=== PATIENT | male | born 1970 | race Caucasian/White ===

== ENCOUNTER 2019-10-24 11:04 | Inpatient (IN) | payer OTHER ==
[2019-10-23 10:12] LABS: BASOPHILS # (AUTO) 0.1 (0.0-0.1); BASOPHILS % 0.8 % (0.0-1.0); EOSINOPHILS # (AUTO) 0.3 (0.0-0.4); EOSINOPHILS % 4.2 % (0.0-6.0); HEMOGLOBIN 15.1 g/dL (14.0-18.0); LYMPHOCYTES # (AUTO) 1.6 (1.0-3.2); MEAN CORPUSCULAR HEMOGLOBIN 28.9 pg (28-32); MEAN CORPUSCULAR HGB CONC 33.6 g/dL (31-35); MONOCYTES # (AUTO) 0.4 (0.2-0.8); MONOCYTES % 5.4 % (4.4-11.3); NEUTROPHILS % 67.7 % (38.7-80.0); PLATELET COUNT 285 x10e3/uL (140-360); RED BLOOD COUNT 5.23 x10e6/uL (4.3-5.7)
[2019-10-23 10:31] LABS: ANION GAP 15.5 mmol/L (8-16); BLOOD UREA NITROGEN 14 mg/dL (7-26); BUN/CREATININE RATIO 18 (6-25); CALCIUM 9.3 mg/dL (8.4-10.2); CARBON DIOXIDE 23 mmol/L (22-29); CHLORIDE 101 mmol/L (98-107); CREATININE, SERUM 0.79 mg/dL (0.72-1.25); EST GLOMERULAR FILTRATION RATE > 60 ML/MIN (60-); GLUCOSE 283 mg/dL (74-118); POTASSIUM 4.5 mmol/L (3.5-5.1); SODIUM 135 mmol/L (136-145)
--- NOTE | 2019-10-23 11:00 | Diagnostic Imaging Report ---
EXAM: CHEST 2 VIEWS DATE: 10/23/2019 9:51 AM INDICATION: Preoperative evaluation COMPARISON: None FINDINGS: The trachea is midline. The lungs are symmetrically expanded without evidence for large focal consolidation, pneumothorax, or significant pleural effusion. The cardiomediastinal silhouette and pulmonary vasculature are within normal limits. No acute osseous abnormality is identified. The surrounding soft tissues are unremarkable. IMPRESSION: No acute cardiopulmonary process identified. Signed by: Dr. Javon Lawler MD on 10/23/2019 10:56 AM
[~2019-10-24] VITALS: Ht 190.5 cm; Wt 155.2 kg
[~2019-10-24 11:04] MED LIST: AUGMENTIN 875-1 EACH PO; JANUVIA100 MG PO; LOTREL 10-20 M1 EACH PO; METFORMIN HCL500 MG PO
[2019-10-24] MEDS ORDERED: BACITRACIN 50,000 UNIT VIAL ONE (12:35)
[2019-10-24] MEDS ORDERED: BUPIVACAINE HCL 0.5% INJ 30 ML VIAL INJ ONE (12:35)
[2019-10-24] MEDS ORDERED: INSULIN REGULAR, HUMAN 100 UNIT/1 ML 3ML VIAL ONE (13:16)
[2019-10-24] MEDS ORDERED: SEVOFLURANE INHAL SOLN 250 ML PEN BTL ONE (14:46)
[2019-10-24] MEDS ORDERED: ONDANSETRON HCL INJ 2MG/ML 2ML 2 MG/ML VIAL ONE (14:46)
[2019-10-24] MEDS ORDERED: LIDOCAINE HCL 2% LOCAL INJ 5 ML SDV VIAL INJ ONE (14:46)
[2019-10-24] MEDS ORDERED: FENTANYL CITRATE/PF 100MCG/2 ML INJ ONE (15:04)
[2019-10-24] MEDS ORDERED: MIDAZOLAM HCL 2 MG/2 ML VIAL ONE (15:04)
--- NOTE | 2019-10-24 15:50 | NUR ---
RCD PT FROM RECOVERY BY BED PT IS ALERT AND ORIENTED PT RESTING ON BED VITALS CHECKED ,ADMISSION HISTORY AND ASSESSMENT DONE PT HAVE WOUND ON THE LEFT FOOT DID THE SURGERY ON TODAY NO SIGNS OF ANY BLEEDING NOTED IV PATENT BY SALINE FLUSH INSTRUCT THE PT REGARDING HOSPITAL POLICY AND ROUTINE BED LOW AND LOCKED CALL LIGHT IN REACH
[2019-10-24 16:15] VITALS: BP 151/73
[2019-10-24] MEDS ORDERED: HYDROCODONE/APAP 5MG-325MG TAB PO PRN (16:15)
[2019-10-24 17:27] VITALS: BP 151/73
[2019-10-24 17:33] VITALS: BP 151/73
[2019-10-24] MEDS ORDERED: PIPER-TAZ 3.375 GM 50 ML IV SCH (18:00)
[2019-10-24] MEDS ORDERED: VANCOMYCIN HCL 1.25 GM in SODIUM CHLORIDE 0.9% 250ML 250 ML IV SCH (18:00)
--- NOTE | 2019-10-24 19:03 | NUR ---
PT RESTING ON BED BED SIDE REPORT GIVEN TO ONCOMING NURSE
--- NOTE | 2019-10-24 19:13 | Diagnostic Imaging Report ---
EXAM: CHEST XRAY LINE PLACEMENT DATE: 10/24/2019 6:53 PM INDICATION: ^LINE PLACEMENT ^[id number] ^190 ^Y COMPARISON: Chest x-ray, 10/23/2019 FINDINGS: Lines and tubes: Interval placement of right PICC extending to mid SVC. Heart size normal. No focal pulmonary opacity, pleural effusion or pneumothorax. Upper abdomen unremarkable. No acute bony abnormality. IMPRESSION: 1. Interval placement of right PICC extending to the mid SVC. 2. No evidence for acute disease in the chest Signed by: Dr. Jamie Shore M.D. on 10/24/2019 7:10 PM
[2019-10-24 20:00] VITALS: BP 124/66
[2019-10-24 20:45] VITALS: BP 124/66
[2019-10-24] MEDS: PIPER-TAZ 3.375 GM 50 ML IV SCH (20:45)
--- NOTE | 2019-10-24 20:45 | NUR ---
PATIENT AOX4, NO SIGNS OF RESPIRATORY DISTRESS NOTED. PATIENT IS RUNNING ON ANTIBIOTICS ORDERED AND VOICES NO PAIN AT THIS TIME. PATIENT HAS ALSO SIGNED FOR POST OP SHOE. BED IS LOW, SIDE RAILS ARE UP, CALL LIGHT WITHIN EASY REACH, WILL CONTINUE TO MONITOR.
[2019-10-24] MEDS: VANCOMYCIN HCL 1.25 GM in SODIUM CHLORIDE 0.9% 250ML 250 ML IV SCH (21:30)
--- NOTE | 2019-10-24 23:29 | Consultation ---
DATE OF CONSULTATION: ROOM NUMBER: Outpatient Patients [facility] for direct admit after surgery. HISTORY OF PRESENT ILLNESS: Mr. Tang is a most pleasant 49-year-old gentleman who was referred to my office for treatment of what was determined to be osteomyelitis of the 4th metatarsal and 4th digit of the left foot. His previous medical history did include a diabetes with distal peripheral neuropathy. He has been treated over year ago with wound debridements and thought the area had improved but stated that the ulcerated area may have sealed over without completely healing and he ultimately did not follow up anymore. The patient has been having difficulty with his blood sugar level since the infection progressed. The patient was sent to MRI outpatient was determined to have osteomyelitis of 4th met and digit. PREVIOUS MEDICAL HISTORY: Otherwise noncontributory has history of hypertension as well as diabetes. 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 REVIEW OF SYSTEMS: Otherwise negative. PHYSICAL EXAMINATION: Lower extremity vascular status, the patient has palpable pedal pulses, both dorsalis pedis, posterior tibial skin temperature is warm cap refill also normal limits. Neurologically, grossly insensate with a loss of protective sensation as evidenced by [place] monofilament testing. Dermatologically, there is a very large lesion on the plantar aspect of the foot. He has recently undergone surgical debridement this morning for that and is admitted in followup. The wound itself is full thickness all the way through skin, subcutaneous tissue, and bone down to the level of the 4th metatarsophalangeal joint. The wound base has been debrided including bone surgically. The area is packed open with iodoform gauze and he will undergo further medical evaluations, IV antibiotics, and stabilization of his blood sugars while in house prior to discharging to local wound care on an outpatient basis as well as IV antibiotics for 6 to 8 weeks. The patient definitely wants to try and save his toe if at all possible, but understands that there is always a risk of loss of digit, foot or extremity with infection of this severity. The patient will be followed closely otherwise. OVIDIO Root/URMILA /[id number]
--- NOTE | 2019-10-24 23:50 | Consultation ---
DATE OF CONSULTATION: REASON FOR CONSULTATION: Osteomyelitis of the left foot. HISTORY OF PRESENT ILLNESS: This patient who is a very pleasant 49-year-old white male, who has history of obesity, hypertension, diabetes mellitus and neuropathy, who has been having problem with his left ankle for more than a year, but recently has been getting progressively worse. The patient was recently diagnosed with osteomyelitis. The patient was admitted for surgical debridement. I am asked to see him for antibiotic recommendation. The patient who is currently lying in bed, comfortable. The patient underwent a left foot bone biopsy with debridement of the 4th metatarsal by Dr. Nic Lucas today. He was on antibiotic. The Gram stain is ordered showing gram-positive cocci. The patient who denies any pain at the present time, except he does have open wound on his left foot, was getting progressively worse. There was no fever, no chills. PAST MEDICAL HISTORY: Hypertension, diabetes mellitus, neuropathy, obesity, hypercholesteremia. PAST SURGICAL HISTORY: Denies. ALLERGIES: NKA. SOCIAL HISTORY: There is no smoking, drug abuse, or alcohol abuse. FAMILY HISTORY: Otherwise unremarkable. REVIEW OF SYSTEMS: HEENT: There is no headache, visual changes, hearing changes. GI: There is no nausea, no vomiting, no diarrhea. CARDIAC: There is no arrhythmia. NEURO: No seizure activity. SKIN: There is no other rash. The patient who was on vancomycin and Zosyn. His home medications reviewed. He is on amlodipine and insulin. He was on Augmentin, metformin and Januvia. LABORATORY DATA: Reviewed. His chart reviewed. White count 7.44, hemoglobin 15. Sodium 135, potassium 4.5, glucose of 283, creatinine 0.79. He had workup for osteomyelitis as an outpatient with Dr. Nic Lucas. Discussed with Dr. Nic Lucas. PHYSICAL EXAMINATION: GENERAL: He is currently alert, oriented, does not seem to be in acute distress. VITAL SIGNS: Stable, currently afebrile. HEENT: Not icteric. NECK: Supple. No JVD. No lymphadenopathy or thyromegaly. CHEST: Clear bilateral. HEART: S1, S2. No S3, S4 or murmur. ABDOMEN: Soft. Bowel sounds present. No tenderness. EXTREMITIES: No edema. The left foot dressing is on. There is some blood noted on the dressing. IMPRESSION: Osteomyelitis of the left foot. We will get a PICC line. He has a gram-positive cocci. We will put on vancomycin 1.25 q.12. We will obtain vancomycin trough 15 +/-2 if possible. Weekly CBC. We will get chemistry panel. We will get a PICC line. We will arrange home IV antibiotic. Please contact [phone]. Diabetes mellitus, neuropathy, hypertension, obesity, hypercholesteremia, atherosclerosis disease. Discussed with the patient, answered all his question. MD BETHANY Mcqueen/URMILA /[id number]
--- NOTE | 2019-10-24 23:55 | Operative Report ---
DATE OF PROCEDURE: SURGEON: Nic Lucas DPM PREOPERATIVE DIAGNOSES: Chronic ulceration with osteomyelitis of the 4th metatarsal and digit of the left foot. POSTOPERATIVE DIAGNOSES: Chronic ulceration with osteomyelitis of the 4th metatarsal and digit of the left foot. NAME OF THE OPERATION: Incision and drainage with debridement of the ulcerated area 4th metatarsal plantarly on the left foot with debridement of skin, subcutaneous tissue, fat, capsule tendon, and bone all the way through the joint of the 1st metatarsal phalangeal head. The ulcerated area as well as the bone debridement and sequestrum were all sent to pathology for further evaluation of osteomyelitis as well as culture and sensitivity to micro of the bone. Small segments of bone were actually included within the culturette. PROCEDURE IN DETAIL: The patient was taken to the operating room in a mildly sedated state and placed on the operating table in supine position. Following induction of general anesthetic, the left lower extremity was elevated to 60 degrees to exsanguinate before inflating the pneumatic ankle tourniquet at 250 mmHg for hemostasis. Attention was directed to the foot where a large wound approximately 3.5 x 1.5, was noted on the plantar aspect of the 5th met head. This tracked all the way to bone and there was an exposed bone within the wound base. The wound was circumscribed, and the entirety of the circumscribed wound was sent to Pathology for ID only. Deep tissue including capsule tendon and subcutaneous tissue and fat, all of which were necrotic, were debrided from the wound. The capsule on the plantar aspect was eroded and plantar cartilage was noted exposed through the wound base. This was debrided away as it was all devitalized and cultured. The bone itself was sent to Pathology for bone biopsy and further identification of the osteomyelitis, which is obviously present. The base of the proximal phalanx of the 4th digit as well as the 4th metatarsal head were all involved. The area was then irrigated with copious amounts of bacitracin solution after all cultures had been obtained. The wound base was packed with quarter-inch iodoform gauze. The appropriate mildly compressive dressings were applied as well. Release of the pneumatic ankle tourniquet showed a normal hyperemic flush to all digits of the left foot. The patient left the operating room with vital signs stable in apparent satisfactory condition, having tolerated both anesthetic and procedure very well. The patient has been informed that due to the extent of the osteomyelitis, he may eventually lose the 4th digit and metatarsal head, but at this point, an attempt will be made to heal the wound over the debrided bone. The patient will be admitted for further medical workup as his blood sugar levels have been out of control in the 200s preoperatively. The patient will be seen by Dr. Pak of Infectious Disease as well as Dr. Box of Internal Medicine and Dr. Matt Bonner of Endocrinology. OVIDIO Root/MODL /[id number]
[2019-10-25] VITALS (8 sets, daily range): BP systolic 112–151; BP diastolic 59–94
[2019-10-25] MEDS: PIPER-TAZ 3.375 GM 50 ML IV SCH ×4 (01:20→18:00)
[2019-10-25] MEDS ORDERED: CLONIDINE HCL 0.1 MG TAB PO PRN (05:30)
--- NOTE | 2019-10-25 07:00 | NUR ---
RCD PT AT BED PT IS ALERT AND ORIENTED PT RESTING ON BED IV PATENT BY SALINE FLUSH BED LOW AND LOCKED CALL LIGHT IN REACH
[2019-10-25] MEDS: VANCOMYCIN HCL 1.25 GM in SODIUM CHLORIDE 0.9% 250ML 250 ML IV SCH ×2 (08:00→19:17)
[2019-10-25] MEDS: SITAGLIPTIN 100 MG TAB PO SCH (09:00)
[2019-10-25] MEDS ORDERED: METFORMIN HCL 500 MG TAB PO SCH (09:00)
--- NOTE | 2019-10-25 11:45 | History and Physical ---
REASON FOR ADMISSION: Postop of left foot osteomyelitis. HISTORY OF PRESENT ILLNESS: The patient is a 49-year-old gentleman with diabetes and hypertension who presented with presumed osteomyelitis of the left 4th and 5th digits where he is now status post surgical debridement by Dr. Lucas. He currently has some minimal pain of the left foot, but otherwise denies any fever, chills, nausea, vomiting, headache, or shortness of breath. PAST MEDICAL HISTORY: Diabetes and hypertension. MEDICATIONS: See MAR. ALLERGIES: NONE. SOCIAL HISTORY: Nonsmoker, nondrinker. FAMILY HISTORY: Hypertension. PHYSICAL EXAMINATION: GENERAL: No apparent distress. NECK: Supple. CARDIOVASCULAR: Regular rate and rhythm. LUNGS: Clear to auscultation bilaterally. ABDOMEN: Good bowel sounds. Soft, nontender. EXTREMITIES: No clubbing or cyanosis. Left foot is bandaged. NEUROLOGIC: Nonfocal. ASSESSMENT AND PLAN: 1. Osteomyelitis of the left foot. We will continue with IV antibiotics and wait for culture data to return. Dr. Pak is seeing the patient. 2. Left hip pain. We will continue with pain control. 3. Hypertension. Continue monitoring. 4. Diabetes. Continue with his home medication and monitoring of his sugars. 5. Morbid obesity. The patient is encouraged to diet better. Please see hospital chart for full details. MD SALLY Mackenzie/MODL /[id number]
--- NOTE | 2019-10-25 12:04 | NUR ---
Left message for Dr. Lucas regarding DC plan. Informed of IV abx being set up in Dr. Pak's office and his nurse is asking about a dc date. Awaiting response.
--- NOTE | 2019-10-25 13:57 | NUR ---
SEGUNDO spoke to Dr. Lucas regarding wound care. States he will determine that when he round tonight after clinic.
[2019-10-25 14:46] LABS: FREE T4 (FREE THYROXINE) 1.27 ng/dL (0.8-1.8); THYROID STIMULATING HORMONE 1.178 uIU/mL (0.350-4.940)
[2019-10-25] MEDS: INSULIN LISPRO 100 UNIT/1 ML 3ML VIAL SQ SCH ×2 (16:30→21:00)
[2019-10-25] MEDS: METFORMIN HCL 500 MG TAB PO SCH (17:00)
--- NOTE | 2019-10-25 17:02 | Consultation ---
DATE OF CONSULTATION: 10/24/2019 Endocrine Consultation The patient of Dr. Box. Thank you very much for referring this patient. HISTORY OF PRESENT ILLNESS: This is a 49-year-old white male gentleman, who was referred to me for evaluation of uncontrolled diabetes mellitus. The patient came to the hospital because of the foot ulcer and osteomyelitis of the left 4th metatarsal. The patient is getting IV antibiotics. The patient reportedly had an ulcer of the foot following when he stepped on some glass and it has been going on for one year. This is getting progressively worse and finally the patient has osteomyelitis and admitted to the hospital for further evaluation. The patient is a known diabetic for almost 5 to 6 years and takes metformin and Januvia at home. His blood sugars at the time of admission have been in 288 range. The patient also is a nonsmoker. He has a history of hypertension and hyperlipidemia. PHYSICAL EXAMINATION: GENERAL: Today, the patient is alert, awake, little bit apprehensive. He is moderately overweight. VITAL SIGNS: His heart rate is around 78, blood pressure 140/80 mmHg. HEENT: Essentially unremarkable. Thyroid is palpable. Clinically, he is near euthyroid. CHEST: Bilateral vesicular breathing. He has bilateral bronchospasm. CARDIOVASCULAR: First and second heart sounds are heard. There is no third or fourth heart sounds. There is ejection systolic murmur grade 2/6. 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 CLINICAL IMPRESSION: 1. Diabetes mellitus type 2, uncontrolled with complications. 2. Osteomyelitis of the left 4th metatarsal. 3. Hypertension. 4. Obesity. PLAN: At this time is to do hemoglobin A1c, thyroid function tests, monitor his blood sugars closely and start him on the Lantus insulin and Humalog with each meal depending upon the blood sugars. Thanks for referring this patient. I will be following this patient with you. MD ALAN Eldridge/MODL /[id number]
--- NOTE | 2019-10-25 17:30 | NUR ---
DRESSING CHANGED BY DR QUINN
--- NOTE | 2019-10-25 19:12 | NUR ---
PT RESTING ON BED BED SIDE REPORT GIVEN TO ONCOMING NURSE
[2019-10-25] MEDS ORDERED: INSULIN GLARGINE 100 UNITS/ML VIAL SQ SCH ×2 (21:00)
--- NOTE | 2019-10-25 21:00 | NUR ---
PATIENT AOX4, NO SIGNS OF RESPIRATORY DISTRESS NOTED. PATIENT IS RUNNING ON ANTIBIOTICS ORDERED AND VOICES NO PAIN AT THIS TIME. PATIENT RELAXING IN RECLINER, CALL LIGHT WITHIN EASY REACH, WILL CONTINUE TO MONITOR.
[2019-10-26] VITALS (10 sets, daily range): BP systolic 108–144; BP diastolic 58–92
[2019-10-26] MEDS: PIPER-TAZ 3.375 GM 50 ML IV SCH ×2 (00:24→05:08)
[2019-10-26] MEDS: INSULIN LISPRO 100 UNIT/1 ML 3ML VIAL SQ SCH ×5 (07:30→19:53)
[2019-10-26] MEDS: SITAGLIPTIN 100 MG TAB PO SCH (08:11)
[2019-10-26] MEDS: VANCOMYCIN HCL 1.25 GM in SODIUM CHLORIDE 0.9% 250ML 250 ML IV SCH ×2 (08:11→19:47)
[2019-10-26] MEDS: METFORMIN HCL 500 MG TAB PO SCH ×2 (08:11→17:11)
[2019-10-26] MEDS ORDERED: CEFEPIME HCL 2 GM VIAL IV SCH (10:15)
--- NOTE | 2019-10-26 12:00 | NUR ---
Spoke to Dr. Lucas regarding wound care. He wants to have wound vac placed on pt and for pt to follow up in wound clinic for vac changes, if possible. SEGUNDO spoke to pt and he is agreeable to going to the wound clinic. Choice letter signed and placed in chart. JAKY Davis placed order for wound care consult. SEGUNDO called and spoke to Caitie at wound clinic. She states with pt's insurance plan, they would need a referral from PCP. SEGUNDO called and spoke to the stretch press operator for pt's PCP Dr. Garcia [phone]. Was informed that the office is closed and will not be opened until Tuesday. She will try to get ahold of Dr. Garcia. States she will call him every 15 mins. CM will call them back if do not hear back from MD in 30 minutes. Pt's IV abx is set up thru Dr. Pak's office. Segundo spoke with ADAM Epperson this morning. Pt has appointment at the office tomorrow at 9am, if he discharges today. Will update Al if pt does not discharge.
--- NOTE | 2019-10-26 12:23 | NUR ---
Received callback from Dr. Garcia. Spoke with him about need for referral to wound clinic. He stated that the office is already closed and they will not be able to send the referral until Tuesday when the office opens. CM left message for Dr. Lucas to update him. Awaiting response.
--- NOTE | 2019-10-26 12:33 | Progress Note ---
DATE: SUBJECTIVE: The patient did well overnight. He states his pain is doing much better on the left foot. grow 2 different organisms of gram-negative rods from his cultures. PHYSICAL EXAMINATION: VITAL SIGNS: Temperature is 96.0, pulse 71, blood pressure 124/64, and saturations 96% on room air. GENERAL: No apparent distress, lying in bed. CARDIOVASCULAR: Regular rate and rhythm. LUNGS: Clear to auscultation bilaterally. ABDOMEN: Good bowel sounds. Soft and nontender. EXTREMITIES: No clubbing or cyanosis. Left foot is wrapped. NEUROLOGIC: Nonfocal. ASSESSMENT AND PLAN: 1. Left foot osteomyelitis. Continue current care with IV antibiotics. Await for culture data to come back. 2. Hypertension. Continue to monitor. 3. Diabetes. Continue with current care monitor. 4. Left hip pain. We will continue with current pain control. Please see hospital chart for full details. MD SALLY Mackenzie/URMILA /[id number]
[2019-10-26] MEDS: CEFEPIME 2 GM/NS 0.9% 100 ML 100 ML IV SCH ×2 (13:41→22:57)
--- OUTSIDE RECORDS SUMMARY | 2019-10-26 13:56 | XMS REPORT ---
[facility] Address Unknown Phone Unavailable Care Team Providers Care [employer] Name Role Phone ANTHONY COYLE Unavailable Unavailable Problems This patient has no known problems. Allergies, Adverse Reactions, Alerts This patient has no known allergies or adverse reactions. Medications This patient has no known medications. Results Test Description Test Time Test Comments Text Results Atomic Results Result Comments CHEST XRAY LINE PLACEMENT 2019-10-24 19:09:00 [place] [address] Patient Name: SERENA CAMPOS JR MR #: [id number] : 1970 Age/Sex: 49/M Req #: [id number] [facility] Physician: ANTHONY COYLE MD Ordered by: GÓMEZ RICHARD MD Report #: [id number] Location: [facility]UR[facility] Room/Bed: [facility] [place][note 3] Procedure: [id number] DX/CHEST XRAY LINE PLACEMENT Exam Date: 10/24/19 Exam Time: 1899 REPORT STATUS: Signed EXAM: CHEST XRAY LINE PLACEMENT DATE: 10/24/2019 6:53 PM INDICATION: LINE PLACEMENT [id number] Y COMPARISON: Chest x-ray, 10/23/2019 FINDINGS: Lines and tubes: Interval placement of right PICC extending to mid SVC. Heart size normal. No focal pulmonary opacity, pleural effusion or pneumothorax. Upper abdomen unremarkable. No acute bony abnormality. IMPRESSION: 1. Inter joelle placement of right PICC extending to the mid SVC. 2. No evidence for acute disease in the chest Signed by: Dr. Darrel Maddox M.D. on 10/24/2019 7:10 PM Dictated By: DARREL MADDOX MD 09 Transcribed By: MATTHEW on 10/24/191909 COPY TO: GÓMEZ RICHARD MD CHEST 2 VIEWS 2019-10-23 10:56:00 [place] [address] Patient Name: SERENA CAMPOS JR MR #: [id number] : 1970 Age/Sex: 49/M Req #: [id number] Adm Physician: Ordered by: MAI CHAO DPM Report #: [id number] Location: OR Room/Bed: Procedure: [id number] DX/CHEST 2 VIEWS Exam Date: 10/23/19 Exam Time: 1024 REPORT STATUS: Signed EXAM: CHEST 2 VIEWS DATE: 10/23/2019 9:51 AM INDICATION: Preoperative evaluation COMPARISON: None FINDINGS: The trachea is midline. The lungs are symmetrically expanded without evidence for large focal consolidation, pneumothorax, or significant pleural effusion. The cardiomediastinal silhouette and pulmonary vasculature are within normal limits. No acute osseous abnormality is identified. The surrounding soft tissues are unremarkable. IMPRESSION: No acute cardiopulmonary process identified. Signed by: Dr. Javon Lawler MD on 10/23/2019 10:56 AM Dictated By: JAVON LAWLER MD 55 Transcribed By: MATTHEW on 10/23/191055 COPY TO: MAI CHAO DPM
--- NOTE | 2019-10-26 16:30 | NUR ---
Spoke with Dr. Lucas. States pt needs to be set up with wound vac and outpatient wound clinic follow up prior to dc. Spoke with Rosanna with wound care. She states they will be setting up home wound vac.
--- NOTE | 2019-10-26 17:28 | NUR ---
WOUND TREATMENT: WOUND VAC APPLIED TO LEFT PLANTAR FOOT RAM 3 DIABETIC ULCER, PER ORDERS. PATIENT IS POST OP DAY 2 FROM SURGICAL DEBRIDEMENT BY DR. CHAO. WOUND ASSESSMENT PERFORMED. LEFT FOOT PLANTAR ULCER MEASUREMENTS 2.5X1.5X2.8CM, BONE EXPOSED AND RED GRANULAR TISSUE TO 100% OF WOUND BED, MINIMAL SEROSANEINOUS DRAINAGE NOTED. NO SXS OF INFECTION NOTED. PATIENT NPWT VAC APPLIED AT 120mmHg CONT SUCTION, ADAPTIC APPLIED TO PROTECT EXPOSED BONE. PATIENT TOLERATED PROCEDURE WELL. PATIENT GIVEN WOUND VAC EDUCATION AND INSTRUCTIONS. PATIENT VERBALIZED UNDERSTANDING OF TEACHING. PATIENT'S AUTHORIZATION FOR HOME READY VAC WITH [facility] CURRENTLY IN PROCESS WITH [facility]. Addendum: 10/26/19 at 1736 by Niya Paige RN Amended: Links added.
[2019-10-26] MEDS: INSULIN GLARGINE 100 UNITS/ML VIAL SQ SCH (19:53)
[2019-10-27] VITALS (9 sets, daily range): BP systolic 110–124; BP diastolic 57–89
[2019-10-27] MEDS: INSULIN LISPRO 100 UNIT/1 ML 3ML VIAL SQ SCH ×7 (07:30→21:00)
[2019-10-27] MEDS: VANCOMYCIN HCL 1.25 GM in SODIUM CHLORIDE 0.9% 250ML 250 ML IV SCH ×2 (09:01→20:30)
[2019-10-27] MEDS: SITAGLIPTIN 100 MG TAB PO SCH (09:01)
[2019-10-27] MEDS: METFORMIN HCL 500 MG TAB PO SCH ×2 (09:01→16:37)
[2019-10-27] MEDS: CEFEPIME 2 GM/NS 0.9% 100 ML 100 ML IV SCH ×2 (10:39→21:00)
--- NOTE | 2019-10-27 19:00 | NUR ---
Received report from morning nurse. Pt alert and oriented to name, lying in bed HOB 60 degrees. Denies pain at this time. Wound vac to left foot in place. Call light within reach. Bed low and locked. Will continue to monitor.
[2019-10-27] MEDS: INSULIN GLARGINE 100 UNITS/ML VIAL SQ SCH (21:00)
[2019-10-28] VITALS (7 sets, daily range): BP systolic 118–177; BP diastolic 67–87
--- NOTE | 2019-10-28 07:00 | NUR ---
BEDSIDE SHIFT REPORT RECEIVED FROM THE ONCOLOGY RN RN. EDUCATED PT ABOUT FALL PRECAUTIONS. CALL LIGHT WITH IN EASY REACH. INSTRUCTED PT TO USE CALL LIGHT FOR ALL THE NEEDS. PT VERBALIZED UNDERSTANDING. BED IS LOW AND LOCKED. SIDE RAILS X2. PT DENIES NEEDS AT THIS TIME.
[2019-10-28] MEDS: INSULIN LISPRO 100 UNIT/1 ML 3ML VIAL SQ SCH ×7 (08:00→21:00)
[2019-10-28] MEDS: VANCOMYCIN HCL 1.25 GM in SODIUM CHLORIDE 0.9% 250ML 250 ML IV SCH (08:30)
[2019-10-28] MEDS: METFORMIN HCL 500 MG TAB PO SCH ×2 (08:48→17:13)
[2019-10-28] MEDS: SITAGLIPTIN 100 MG TAB PO SCH (08:50)
[2019-10-28] MEDS: CEFEPIME 2 GM/NS 0.9% 100 ML 100 ML IV SCH ×2 (10:00→20:00)
--- NOTE | 2019-10-28 12:35 | Progress Note ---
DATE: 10/28/2019 SUBJECTIVE: The patient at this point in time currently denies any nausea, vomiting, fevers, chills, thigh pain, chest pain, calf pain, shortness of breath. The patient is alert, awake, and oriented x3. No acute distress. PHYSICAL EXAMINATION: GENERAL: The patient was up ambulatory in the room today. VITAL SIGNS: Temperature is 96.7, pulse 79, respiratory rate is 18, blood pressure 136/70. The dressing was removed. However, the wound VAC was left in tact. There is minimal edema. No erythema noted. There is no active drainage within the wound VAC at this point time. ASSESSMENT: 1. Status post I and D per Dr. Lucas on right lower extremity on a plantar aspect wound. 2. Diabetes mellitus, peripheral neuropathy. RECOMMENDATIONS: At this point in time, we will continue with IV antibiotics. Continue with the wound VAC. Further recommendations will be pending the patient's clinical progression as well as Dr. Lucas. We will likely discharge tomorrow. Sam Armendariz DPM MM/URMILA /[id number]
--- NOTE | 2019-10-28 14:10 | NUR ---
Visit made by the Spiritual Care Department Pastoral Visitor, Shawna Remy. PV provided pastoral presence, prayer, hospitality, and supportive listening. Pastoral Visitor informed pt/family of the scope of Sales And Customer Relations Rep Services and availability. CRESCENCIO ALMAGUER [employer] Manager Spiritual Care Department O: [phone] Pager: [phone] ([phone] number calling from)
--- NOTE | 2019-10-28 18:55 | NUR ---
Completed bedside report with morning nurse. Pt alert and oriented to name, lying in bed HOB 45 degrees. Denies pain at this time. Wound vac to left foot in place. Call light within reach. Bed low and locked. Will continue to monitor.
--- NOTE | 2019-10-28 19:00 | NUR ---
BEDSIDE SHIFT REPORT GIVEN TO THE CUSTOMER RELATIONS COORDINATOR RN. PT DENIED FURTHER NEEDS
[2019-10-28] MEDS ORDERED: SODIUM CHLORIDE 0.9% IV SCH (20:00)
[2019-10-28] MEDS ORDERED: VANCOMYCIN HCL IV SCH (20:00)
[2019-10-28] MEDS: VANCOMYCIN HCL IV SCH (21:00)
[2019-10-28] MEDS: INSULIN GLARGINE 100 UNITS/ML VIAL SQ SCH (21:00)
[2019-10-28] MEDS: SODIUM CHLORIDE 0.9% IV SCH (21:00)
[2019-10-28] MEDS ORDERED: VANCOMYCIN 1GM/NS 250 ML 0 ML ONE (21:08)
[2019-10-29] VITALS: BP 113/60
[2019-10-29 04:00] VITALS: BP 122/86
--- NOTE | 2019-10-29 06:20 | NUR ---
Pt alert and pleasant, sitting up in bed HOB 75 watching TV. Denies pain at this time. Wound vac in place to left foot with janine, c/d/i.
[2019-10-29 06:24] LABS: BASOPHILS # (AUTO) 0.1 (0.0-0.1); BASOPHILS % 0.6 % (0.0-1.0); EOSINOPHILS # (AUTO) 0.5 (0.0-0.4); EOSINOPHILS % 5.8 % (0.0-6.0); HEMATOCRIT 44.5 % (38.2-49.6); HEMOGLOBIN 14.9 g/dL (14.0-18.0); LYMPHOCYTES # (AUTO) 1.9 (1.0-3.2); LYMPHOCYTES % 22.1 % (18.0-39.1); MEAN CORPUSCULAR HEMOGLOBIN 29.3 pg (28-32); MEAN CORPUSCULAR HGB CONC 33.5 g/dL (31-35); MEAN CORPUSCULAR VOLUME 87.6 fL (81-99); MONOCYTES # (AUTO) 0.7 (0.2-0.8); MONOCYTES % 8.5 % (4.4-11.3); NEUTROPHILS # (AUTO) 5.3 (2.1-6.9); NEUTROPHILS % 62.4 % (38.7-80.0); PLATELET COUNT 251 x10e3/uL (140-360); RED BLOOD COUNT 5.08 x10e6/uL (4.3-5.7); RED CELL DISTRIBUTION WIDTH 12.3 % (11.7-14.4)
[2019-10-29 06:43] LABS: ALANINE AMINOTRANSFERASE 19 IU/L (0-55); ALBUMIN 3.2 g/dL (3.5-5.0); ALBUMIN/GLOBULIN RATIO 0.9 (0.8-2.0); ALKALINE PHOSPHATASE 46 IU/L (40-150); ANION GAP 14.9 mmol/L (8-16); BLOOD UREA NITROGEN 9 mg/dL (7-26); BUN/CREATININE RATIO 11 (6-25); CALCIUM 9.2 mg/dL (8.4-10.2); CARBON DIOXIDE 23 mmol/L (22-29); CHLORIDE 102 mmol/L (98-107); CREATININE, SERUM 0.82 mg/dL (0.72-1.25); EST GLOMERULAR FILTRATION RATE > 60 ML/MIN (60-); GLUCOSE 163 mg/dL (74-118); POTASSIUM 3.9 mmol/L (3.5-5.1); SODIUM 136 mmol/L (136-145)
--- NOTE | 2019-10-29 07:00 | NUR ---
BEDSIDE SHIFT REPORT RECEIVED FROM THE GATE MORTISER OPERATOR RN. EDUCATED PT ABOUT FALL PRECAUTIONS. CALL LIGHT WITH IN EASY REACH. INSTRUCTED PT TO USE CALL LIGHT FOR ALL THE NEEDS. PT VERBALIZED UNDERSTANDING. BED IS LOW AND LOCKED. SIDE RAILS X2. PT DENIES NEEDS AT THIS TIME.
[2019-10-29 08:03] VITALS: BP 155/87
[2019-10-29 08:10] VITALS: BP 155/87
[2019-10-29] MEDS: SODIUM CHLORIDE 0.9% IV SCH (08:30)
[2019-10-29] MEDS: INSULIN LISPRO 100 UNIT/1 ML 3ML VIAL SQ SCH ×6 (08:30→16:30)
[2019-10-29] MEDS: VANCOMYCIN HCL IV SCH (08:30)
[2019-10-29] MEDS: METFORMIN HCL 500 MG TAB PO SCH ×2 (09:00→16:34)
--- NOTE | 2019-10-29 09:00 | NUR ---
SEGUNDO called and spoke to Caitie at wound clinic. She states they are currently working on getting approval for wound vac and wound clinic follow up. Will call CM once everything approved. CM to follow up.
[2019-10-29] MEDS: SITAGLIPTIN 100 MG TAB PO SCH (09:16)
[2019-10-29] MEDS ORDERED: CEFEPIME 2 GM/NS 0.9% 100 ML 100 ML IV SCH (12:00)
[2019-10-29 12:03] VITALS: BP 187/94
--- NOTE | 2019-10-29 14:27 | NUR ---
Nutrition Screen Note RD Recommendation for Physician: -Continue current diet per MD. Plan of Care: RD following, monitoring for tolerance and adequacy Nutrition reason for involvement: LOS Primary Diagnose(s): Postop of left foot osteomyelitis PMH: Diabetes and hypertension. Ht: 75in Wt: 342 lb BMI: 42.8 kg/m2 IBW: [address] Assessment: 10/29: 49 YOM seen resting in bed. Pt is post I and D on right lower extremity on plantar wound. Pt appeared tired and did not want to answer many questions. Pt reported a good appetite. Pt was educated on the DM diet and given handout. Pt had no other questions or concerns. Chart reviewed. Labs and meds reviewed. Possible d/c home today, wound care is following. Pt has been consuming 100% of his meals. POC GM: 122-60. Will continue to monitor. Current Diet: Malnutrition Evaluation 10/29 The patient does not meet criteria for a specified degree of malnutrition at this time. Will re-evaluate at follow-up as appropriate. Diet Education Needs Assessment: Diet education indicated, pt accepted. Diet Adequacy: Meeting calorie needs, Meeting protein needs, Learner(s): pt Barriers: none Cultural/Language Modifications: none Readiness: acceptance Method: discussion, handout Topics: DM diet Understanding/Compliance: verbalized understanding, anticipate poor to fair compliance Nutrition Care Level: low Signed: Susan Mendosa RD, LD
--- NOTE | 2019-10-29 15:30 | NUR ---
PAGED DR. COYLE REGARDING PT DISCHARGE.
--- NOTE | 2019-10-29 16:09 | NUR ---
WOUND CARE OUTPATIENT WOUND VAC APPLIED TO LEFT PLANTAR FOOT ULCER PER PHYSICIAN ORDERS. PATIENT IS DISCHARGING HOME & WILL FOLLOW UP AT [facility] AT [address] [place], HIS SCHEDULED APPT IS 11/01/19 @0800, HE IS AWARE. DEMONSTRATED HOW TO TROUBLE SHOOT WOUND VAC TO KEEP IT SEALED & GAVE DRESSINGS TO PLACE IN CASE WOUND VAC CANNOT MAINTAIN A SEAL. PT SHOWED KNOWLEDGE OF APPROPRIATE DRESSING CHANGE & VERBALIZED HE IS COMFORTABLE WITH THE MAINTENANCE OF WOUND VAC AT HOME INCLUDING CHARGING, HANDLING & MAINTAINING SEAL. INSTRUCTED PATIENT NOT TO ALLOW AREA TO BE WET & STAFF WILL WASH FOOT WHEN CHANGING VAC. 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 SEE ORDERS FROM DR CHAO. Addendum: 10/29/19 at 1617 by Thu Stanton LVN Amended: Links added.
--- NOTE | 2019-10-29 16:15 | NUR ---
JOSELYN TO D/C PT PER DR. RICHARD. JEREMIE, CASE MANAGEMENT, AND WOUND CARE DEPT.
--- NOTE | 2019-10-29 16:18 | NUR ---
Spoke with wound care clinic. Pt has follow up appointment for 11/01/19 at 8am. They have already called pt and given him appointment information. Wound vac has been changed by wound care nurse today. CM verified with pt that he has appointment information. Dr. Pka's nurse has been by today to deliver abx and provide teaching to pt.
--- NOTE | 2019-10-29 16:28 | NUR ---
D/C PT PER DR. COYLE.
--- NOTE | 2019-10-29 16:35 | NUR ---
PT DISCHARGED HOME SAFELY. PT ESCORTED VIA WHEEL CHAIR TO THE PRIVATE CAR AT THE FRONT ENTRANCE. 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 RICHARD. OUT PATIENT WOUND CARE SET UP COMPLETED PER CASE MANAGEMENT. WOUND CARE INSTRUCTIONS GIVEN. PT VERBALIZED UNDERSTANDING. PT DENIED FURTHER NEEDS.
--- NOTE | 2019-11-07 20:10 | Discharge Summary ---
DISCHARGE DIAGNOSES: Left foot osteomyelitis, diabetes, and hypertension. HISTORY OF PRESENT ILLNESS AND HOSPITAL COURSE: See hospital chart for full details. The patient is a gentleman, who presented with left foot osteomyelitis, where he was brought in and seen by Podiatry and I and D done, debridement without any complications, was also seen by Infectious Disease. He was placed on IV antibiotics. Once his antibiotics was arranged as an outpatient, he was able to be discharged home. He will follow up with both Podiatry and ID in 1 to 2 weeks for prolonged course of antibiotics for the osteomyelitis. He had no complications during his hospitalization. He was able to ambulate well. Please see hospital chart for full details. MD SALLY Mackenzie/URMILA /[id number]
== END 2019-10-29 16:38 | disposition home or self-care (01) | DRG 629 ==
LOC: OR 11:04 → PACU V 14:18 → MED/SURG2 15:52
PROVIDERS: ADMIT Internal Medicine; ATTEND Internal Medicine
PROC: 02HV33Z Insertion of Infusion Device into Superior Vena Cava, Percutaneous Approach (ICD-10-PCS; 2019-10-24)
PROC: B548ZZA Ultrasonography of Superior Vena Cava, Guidance (ICD-10-PCS; 2019-10-24)
PROC: 0QBP0ZZ Excision of Left Metatarsal, Open Approach (ICD-10-PCS; principal; 2019-10-24 13:00)
DX: E11.69 Type 2 diabetes mellitus with other specified complication (principal); M86.8X7 Other osteomyelitis, ankle and foot; Z68.41 Body mass index [BMI] 40.0-44.9, adult; L03.032 Cellulitis of left toe; M25.552 Pain in left hip; I10 Essential (primary) hypertension; E66.01 Morbid (severe) obesity due to excess calories; E11.65 Type 2 diabetes mellitus with hyperglycemia; L97.524 Non-pressure chronic ulcer of other part of left foot with necrosis of bone; E11.42 Type 2 diabetes mellitus with diabetic polyneuropathy; E78.00 Pure hypercholesterolemia, unspecified; Z79.4 Long term (current) use of insulin; B96.5 Pseudomonas (aeruginosa) (mallei) (pseudomallei) as the cause of diseases classified elsewhere; B96.1 Klebsiella pneumoniae [K. pneumoniae] as the cause of diseases classified elsewhere; R53.81 Other malaise
CPT/HCPCS: 36415; 36569; 71045; 71046; 76000; 80048; 80053; 80202; 82948; 83036; 84439; 84443; 85025; 85651; 86140; 87071; 87075; 87186; 87205; 88302; 88305; 88311; 93005; J1815; J1817; J2001; J2250; J2405; J2543; J3010; J3370; J7040; J7050

== ENCOUNTER → 2019-11-01 | Outpatient (CLI) | payer OTHER | LOC: WCC 13:27 | PROVIDERS: ATTEND Podiatrist Foot Surgery | DX: E11.621 Type 2 diabetes mellitus with foot ulcer (principal); E11.622 Type 2 diabetes mellitus with other skin ulcer; L97.428 Non-pressure chronic ulcer of left heel and midfoot with other specified severity; I10 Essential (primary) hypertension ==

== ENCOUNTER → 2019-11-12 | Outpatient (CLI) | payer OTHER | LOC: WCC 14:14 | PROVIDERS: ATTEND Podiatrist Foot Surgery | DX: E11.621 Type 2 diabetes mellitus with foot ulcer (principal); E11.622 Type 2 diabetes mellitus with other skin ulcer; L97.428 Non-pressure chronic ulcer of left heel and midfoot with other specified severity; I10 Essential (primary) hypertension ==

== ENCOUNTER → 2019-11-22 | Outpatient (CLI) | payer OTHER | LOC: WCC 13:50 | PROVIDERS: ATTEND Internal Medicine Infectious Disease | DX: E11.622 Type 2 diabetes mellitus with other skin ulcer (principal); E11.621 Type 2 diabetes mellitus with foot ulcer; L97.428 Non-pressure chronic ulcer of left heel and midfoot with other specified severity ==

== ENCOUNTER → 2019-11-26 | Outpatient (CLI) | payer OTHER | LOC: WCC 01:00 | PROVIDERS: ATTEND Podiatrist Foot Surgery | DX: E11.621 Type 2 diabetes mellitus with foot ulcer (principal); L97.428 Non-pressure chronic ulcer of left heel and midfoot with other specified severity; E11.622 Type 2 diabetes mellitus with other skin ulcer; I10 Essential (primary) hypertension ==

== ENCOUNTER → 2019-12-05 | Outpatient (CLI) | payer OTHER ==
--- NOTE | 2019-11-28 11:03 | NUR ---
Administered 2mg of cathflo activase per Dr. Pak order to declot PICC line. After administering 1ml per lumen and waiting 30 minutes, both lumens flush and draw blood. No complications noted.
[~2019-12-05] MED LIST changes: +ALTEPLASE RECOMBINANT 2 MG/2 ML VIAL ONE; +HUMALOG100 UNIT/1 SQ
--- NOTE | 2019-12-05 11:46 | Diagnostic Imaging Report ---
EXAMINATION: CHEST XRAY LINE PLACEMENT INDICATION: Line placement COMPARISON: Chest radiograph 10/24/2019 FINDINGS: LINES/TUBES:Right PICC line terminates in the superior vena cava. LUNGS:The lungs are well-inflated. No focal consolidation or pulmonary edema. PLEURA:No pleural effusion or pneumothorax. MEDIASTINUM:The cardiomediastinal silhouette appears normal in size and shape. BONES/SOFT TISSUES:No acute osseous injury. ABDOMEN:No free air under the diaphragm. IMPRESSION: Right PICC line terminates in the superior vena cava. Signed by: Victoria Reed MD on 12/05/2019 11:43 AM
== END ==
LOC: DX 11-28 09:01
PROVIDERS: ATTEND Internal Medicine Infectious Disease
DX: M86.172 Other acute osteomyelitis, left ankle and foot (principal)
CPT/HCPCS: 36569; 36593; J2997

== ENCOUNTER → 2019-12-13 | Outpatient (CLI) | payer OTHER ==
[~2019-12-13] MED LIST changes: -ALTEPLASE RECOMBINANT 2 MG/2 ML VIAL ONE; -HUMALOG100 UNIT/1 SQ
== END ==
LOC: WCC 14:57
PROVIDERS: ATTEND Podiatrist Foot Surgery
DX: E11.621 Type 2 diabetes mellitus with foot ulcer (principal); E11.622 Type 2 diabetes mellitus with other skin ulcer; L97.428 Non-pressure chronic ulcer of left heel and midfoot with other specified severity; I10 Essential (primary) hypertension

== ENCOUNTER → 2020-01-25 | Day surgery (SDC) | payer OTHER ==
[~2020-01-25] MED LIST changes: +BACITRACIN 50,000 UNIT VIAL ONE; +BUPIVACAINE HCL 0.5% INJ 30 ML VIAL INJ ONE; +CEFAZOLIN SOD 1 GM/NS 50ML 100 ML IV ONE; +DEXAMETHASONE SOD PHOS INJ 4 MG/ML VIAL ONE; +FENTANYL CITRATE/PF 100MCG/2 ML INJ ONE; +HUMALOG100 UNIT/1 SQ; +HYDROMORPHONE 1MG/1ML INJ ONE; +LIDOCAINE HCL 2% LOCAL INJ 5 ML SDV VIAL INJ ONE; +MIDAZOLAM HCL 2 MG/2 ML VIAL ONE; +NEOSTIGMINE 1 MG/ML 10ML VIAL ONE; +ONDANSETRON HCL INJ 2MG/ML 2ML 2 MG/ML VIAL ONE; +PROPOFOL IV EMULSION 10 MG/ML 20 ML VIAL ONE; +SEVOFLURANE INHAL SOLN 250 ML PEN BTL ONE
[2020-01-25 08:07] LABS: BASOPHILS % 0.5 % (0.0-1.0); EOSINOPHILS # (AUTO) 0.3 (0.0-0.4); EOSINOPHILS % 4.5 % (0.0-6.0); HEMATOCRIT 46.2 % (38.2-49.6); LYMPHOCYTES # (AUTO) 1.6 (1.0-3.2); LYMPHOCYTES % 20.7 % (18.0-39.1); MEAN CORPUSCULAR HEMOGLOBIN 29.3 pg (28-32); MEAN CORPUSCULAR HGB CONC 34.6 g/dL (31-35); MEAN CORPUSCULAR VOLUME 84.6 fL (81-99); MONOCYTES # (AUTO) 0.6 (0.2-0.8); MONOCYTES % 8.1 % (4.4-11.3); NEUTROPHILS % 65.9 % (38.7-80.0); PLATELET COUNT 262 x10e3/uL (140-360); RED BLOOD COUNT 5.46 x10e6/uL (4.3-5.7); RED CELL DISTRIBUTION WIDTH 12.9 % (11.7-14.4)
[2020-01-25 08:39] LABS: ANION GAP 13.3 mmol/L (8-16); BLOOD UREA NITROGEN 12 mg/dL (7-26); BUN/CREATININE RATIO 14 (6-25); CALCIUM 9.1 mg/dL (8.4-10.2); CARBON DIOXIDE 25 mmol/L (22-29); CHLORIDE 104 mmol/L (98-107); CREATININE, SERUM 0.83 mg/dL (0.72-1.25); EST GLOMERULAR FILTRATION RATE > 60 ML/MIN (60-); GLUCOSE 157 mg/dL (74-118); POTASSIUM 4.3 mmol/L (3.5-5.1); SODIUM 138 mmol/L (136-145)
[2020-01-25 10:43] VITALS: BP 140/97
--- NOTE | 2020-01-25 16:19 | Operative Report ---
DATE OF PROCEDURE: 01/25/2020 SURGEON: Nic Lucas DPM ROOM NUMBER: Outpatient at [facility]. POSTOPERATIVE DIAGNOSIS: Osteomyelitis, 4th metatarsal and digit, left foot. POSTOPERATIVE DIAGNOSIS: Osteomyelitis, 4th metatarsal and digit, left foot. TITLE OF THE OPERATION: Amputation 4th digit metatarsal, left foot. ANESTHESIA: General endotracheal. HEMOSTASIS: A left thigh tourniquet to 350 mmHg. PROCEDURE IN DETAIL: The patient was taken to the operating room in a mildly sedated state and placed on the operating table in supine position. Following induction of general anesthetic, the left lower extremity was elevated to 60 degrees to exsanguinate before inflating the pneumatic thigh tourniquet at 350 mmHg to create hemostasis. The left lower extremity was placed on the operating table prior to performing following procedure. Procedure #1: Amputation 4th digit metatarsal, left foot. Attention was directed to the open draining wound on the plantar aspect of the left foot. A circumscribed incision was placed surrounding that ulcerated area and that ulcerated area was debrided of all necrotic tissue. The wound measured approximately 2.5 cm in circumference and was packed open with iodoform gauze. Attention was then directed to the dorsal aspect of the foot, where 2 converging semi-elliptical incision was made overlying the 4th digit of the left foot. This extended up dorsalward onto the 4th metatarsal. The 4th digit and metatarsal were isolated, identified with regard to the osteomyelitis on fluoroscopy and the digit was disarticulated and the metatarsal was resected utilizing oscillating saw. The area was irrigated with copious amounts of sterile saline solution and Simpulse treatment. The plantar aspect having been appropriately packed. An AmnioFill 500 mg packing was performed and the dorsal wound was closed with combination of 3-0 Vicryl and 4-0 nylon. The areas of surgery were then blocked with 0.5 Marcaine. Released the pneumatic thigh tourniquet, which showed a normal hyperemic flush to all digits of the left foot and the patient left the operating room with vital signs stable and in apparent satisfactory condition, having tolerated the anesthetic and procedure very well. Nic Lucas DPM SM/MODL /[id number]
== END | disposition home or self-care (01) ==
LOC: OR 07:02
PROVIDERS: ATTEND Podiatrist Foot Surgery
DX: M86.9 Osteomyelitis, unspecified (principal); L89.894 Pressure ulcer of other site, stage 4; M79.672 Pain in left foot; Z01.812 Encounter for preprocedural laboratory examination; E11.9 Type 2 diabetes mellitus without complications; F41.9 Anxiety disorder, unspecified; J45.909 Unspecified asthma, uncomplicated; G47.33 Obstructive sleep apnea (adult) (pediatric); I10 Essential (primary) hypertension
CPT/HCPCS: 28820; 36415; 76000; 80048; 82948; 85025; 87071; 87075; 87186; 87205; 88305; 88311; J0690; J1100; J1170; J2001; J2250; J2405; J2704; J2710; J3010; Q4100; 88304